=== PATIENT | female | born 1990 ===

== ENCOUNTER 2017-06-23 21:08 | Emergency (ER) | payer SELFPAY ==
[~2017-06-23] VITALS: Ht 154.9 cm; Wt 58.0 kg
[2017-06-23 21:12] VITALS: Ht 154.9 cm; Wt 58.0 kg
[2017-06-23 23:24] LABS: BASOPHIL # 0.1 10^3/ul (0.0-0.1); BASOPHILS % 0.5 % (0.0-2.0); EOSINOPHILS # 0.3 10^3/ul (0.0-0.5); EOSINOPHILS % 2.4 % (0.0-7.0); HEMOGLOBIN 13.8 g/dl (12.0-16.0); LYMPHOCYTES # 3.4 10^3/ul (0.8-2.9); LYMPHOCYTES % 30.4 % (15.0-51.0); MEAN CORPUSCULAR HGB CONC 34.5 g/dl (32.0-37.0); MEAN PLATELET VOLUME 10.4 fl (7.4-10.4); MONOCYTE # 0.9 10^3/ul (0.3-0.9); MONOCYTES % 8.4 % (0.0-11.0); PLATELET COUNT 245 10^3/UL (140-415); RED CELL DISTRIBUTION WIDTH 12.7 % (11.5-14.5); WHITE BLOOD COUNT 11.1 10^3/ul (4.8-10.8)
[2017-06-23 23:39] LABS: ADD UMIC YES; UR ASCORBIC ACID NEGATIVE (NEGATIVE); UR BACTERIA FEW /HPF (NONE SEEN); UR BILIRUBIN (Dip) NEGATIVE (NEGATIVE); UR BLOOD (Dip) 1+ mg/dL (NEGATIVE); UR CLARITY CLEAR (CLEAR); UR COLOR YELLOW (YELLOW); UR GLUCOSE (Dip) NEGATIVE (NEGATIVE); UR KETONES (Dip) NEGATIVE (NEGATIVE); UR LEUKOCYTE ESTERASE (Dip) NEGATIVE Leu/ul (NEGATIVE); UR NITRITE (Dip) NEGATIVE (NEGATIVE); UR RBC 1 /HPF (0-5); UR TOTAL PROTEIN (Dip) NEGATIVE (NEGATIVE); UR UROBILINOGEN (Dip) NEGATIVE (NEGATIVE)
--- NOTE | 2017-06-23 23:48 | RADRPT ---
PROCEDURE: US OB. CLINICAL INDICATION: . Vaginal bleeding. TECHNIQUE: Multiple sonographic images of the pelvis were obtained. Transabdominal and transvagin al views of the pelvis are available for review. The images were reviewed on a PACS workstation. COMPARISON: No prior studies are available for comparison. FINDINGS: An intrauterine probable early gestational sac at 2.7 mm is identified, corresponding to 4 weeks 6 d ays size.. No pole or cardiac activity is detected. No subchorionic hemorrhage is identifi ed. The ovaries are normal with vascular flow identified on color Doppler imaging.. There is no ad nexal mass or free fluid. IMPRESSION: Intrauterine sac-like structure at 4 weeks 6 days size without pole or heart motion, likely re presents an early intrauterine too small to identify a pole. No adnexal mass or gladis e fluid to suggest ectopic . RPTAT: [facility]VK .Yobany Burden MD, Date Time Electronically viewed and signed by .Yobany Burden MD, on 06/23/2017 23:47 .K/
--- NOTE | 2017-06-24 00:29 | ERD ---
ER Documentation Chief Complaint Date/Time DATE: 06/24/17 TIME: 00:24 Chief Complaint pt is bib with c/o vag bleeding since today , approx 6 wks HPI 27-year-old female G 3 last menstrual period May 11 presents with mild vaginal bleeding and mild 2 out of 10 intermittent pelvic pain for 1 day. Denies fever, nausea vomiting diarrhea. Denies dysuria. Patient does not have an [employer]BER SEC[employer]ITY SPECIALIST at this moment ROS All systems reviewed and are negative except as per history of present illness. Allergies Allergies: Coded Allergies: No Known Allergy (Unverified , 06/23/17) PMhx/Soc Medical and Surgical Hx: pt denies Medical Hx, pt denies Surgical Hx Hx Miscellaneous Medical Probl: Yes ( 3, para 1, miscar 1) Hx Alcohol Use: No Hx Substance Use: No Hx Tobacco Use: No Smoking Status: Never smoker Physical Exam Vitals Vital Signs Date Time Temp Pulse Resp B/P Pulse Ox O2 Delivery O2 Flow Rate FiO2 06/23/17 21:12 98.3 91 16 119/69 98 Physical Exam General: well-developed/well-nourished, in no apparent distress, non-toxic appearing HENT: NC/AT Eyes: Conjunctiva normal Neck: Supple Pulm: CTA bilaterally, normal breathing CV: Normal S1S2 GI: Soft, non-distended, normal bowel sounds, TTP on suprapubic region Back: No midline tenderness, no masses, No CVAT Ext: No clubbing, cyanosis, or edema Neuro: Alert and orientated Skin: intact, normal turgor Psych: Normal mood and mentation Result Diagram: 06/23/17 2300 Results 24 hrs Laboratory Tests Test 06/23/17 22:50 06/23/17 23:00 Urine Color YELLOW Urine Clarity CLEAR Urine pH 7.0 Urine Specific [place] 1.010 Urine Ketones NEGATIVEmg/dL Urine Nitrite NEGATIVEmg/dL Urine Bilirubin NEGATIVEmg/dL Urine Urobilinogen NEGATIVEmg/dL Urine Leukocyte Esterase NEGATIVELeu/ul Urine Microscopic RBC 1/HPF Urine Microscopic WBC 0/HPF Urine Bacteria FEW/HPF Urine Hemoglobin 1+mg/dL Urine Glucose NEGATIVEmg/dL Urine Total Protein NEGATIVEmg/dl White Blood Count 11.110^3/ul Red Blood Count 4.6010^6/ul Hemoglobin 13.8g/dl Hematocrit 40.0% Mean Corpuscular Volume 87.0fl Mean Corpuscular Hemoglobin 30.0pg Mean Corpuscular Hemoglobin Concent 34.5g/dl Red Cell Distribution Width 12.7% Platelet Count 97570^3/UL Mean Platelet Volume 10.4fl Neutrophils % 58.0% Lymphocytes % 30.4% Monocytes % 8.4% Eosinophils % 2.4% Basophils % 0.5% Nucleated Red Blood Cells % 0.0/100WBC Neutrophils # (Manual) 6.410^3/ul Lymphocytes # 3.410^3/ul Monocytes # 0.910^3/ul Eosinophils # 0.310^3/ul Basophils # 0.110^3/ul Nucleated Red Blood Cells # 0.010^3/ul Beta HCG, Quantitative 1149.1mIU/ml Procedures/MDM 27-year-old female G 3 last menstrual period May 11 presents with mild vaginal bleeding and mild intermittent pelvic pain for 1 day. . Lab work was done in the ED, no evidence of UTI .CBC did not show any evidence of anemia or leukocytosis. Beta hCG was around 1000. At this time it is likely an early intrauterine , patient will need to repeat ultrasound and blood work. At this time patient stable to be discharged home to follow-up with her [employer] SPECIALIST in next few days. Discussed return to the ER for any worsening signs or symptoms OB ultrasound: Intrauterine sac-like structure at 4 weeks 6 days size without pole or heart motion, likely represents an early intrauterine too small to identify a pole. No adnexal mass or free fluid to suggest ectopic . Departure Diagnosis: Primary Impression: Vaginal bleeding in patient at less than 20 weeks ges... Condition: Stable Patient Instructions: Bleeding During Early Referrals: NO PRIMARY,CARE PHYSICIAN (PCP) Additional Instructions: Visite a amador rogelio saucedo para un EXAMEN.Regrese a estas instalaciones si no se mejora conrado esperbamos o conrado le dijimos. Regrese a estas instalaciones si no se mejora conrado esperbamos o conrado le dijimos. ALIS REAL PA-C Jun 24, 2017 00:29
[2017-06-24 00:30] VITALS: BP 121/72; PULSE 85; RESP 16
== END 2017-06-24 00:30 | disposition home or self-care (01) ==
LOC: FTE 21:08
DX: O20.9 Hemorrhage in early pregnancy, unspecified (principal); R10.2 Pelvic and perineal pain; Z3A.01 Less than 8 weeks gestation of pregnancy
CPT/HCPCS: 76801; 76817; 81001; 84702; 85025; 86900; 86901